=== PATIENT | male | born 1960 | race Asian ===

== ENCOUNTER 2017-02-10 10:45 | Inpatient (IN) | payer BC ==
[~2017-02-10] VITALS: Ht 170.2 cm; Wt 55.1 kg
[2017-02-10] MEDS ORDERED: PROTONIX40 MG PO (11:18)
[2017-02-10] MEDS ORDERED: CIPRO500 MG PO (11:19)
[2017-02-10] MEDS ORDERED: BENTYL10 MG PO (11:19)
[2017-02-10] MEDS ORDERED: MINTOX PLUS1 CTB PO (11:20)
[2017-02-10] MEDS ORDERED: PEPCID40 MG PO (11:20)
[2017-02-10 11:36] LABS: CALCIUM 8.5 mg/dL (8.5-10.1); CARBON DIOXIDE 29.6 mmol/L (21-32); CHLORIDE SERUM 102 mmol/L (98-107); CREATININE SERUM 0.9 mg/dL (0.7-1.3); GFR1 > 60 mL/min; GLUCOSE SERUM 116 mg/dL (74-106); POTASSIUM SERUM 3.4 mmol/L (3.5-5.1); SODIUM SERUM 136 mmol/L (136-145)
[2017-02-10 11:40] LABS: ALBUMIN 3.8 g/dL (3.4-5.0); ALKALINE PHOSPHATASE 65 U/L (46-116); ALT/SGPT 22 U/L (16-63); AMYLASE 35 U/L (25-115); AST/SGOT 14 U/L (15-37); LIPASE 127 IU/L (73-393); TOTAL PROTEIN, SERUM 6.8 g/dL (6.4-8.2)
[2017-02-10 11:47] LABS: BASOPHIL % 0.4 % (0-2); PLATELET COUNT 238 x10^3mcL (130-400); RED CELL DISTRIBUTION WIDTH 12.2 % (11.5-14.5)
[2017-02-10 12:12] LABS: microscopic required? NO
[2017-02-10 12:20] LABS: urine erythrocyte NEGATIVE (NEGATIVE)
[2017-02-10 15:49] VITALS: BP 115/70
[2017-02-10 16:04] LABS: AMPHETAMINE QUAL UR NONE DETECTED (NEG <=1000)
[2017-02-10 16:21] LABS: CHOLESTEROL/HDL RATIO 3.9; MAGNESIUM 2.2 mg/dL (1.8-2.4); PHOSPHOROUS 3.7 mg/dL (2.5-4.9)
[2017-02-10 16:27] LABS: FREE T4 1.36 ng/dL (0.76-1.46); T4(THYROXINE) 11.1 ug/dL (4.7-13.3)
[2017-02-10 16:29] LABS: T3 TOTAL 0.98 ng/mL
[2017-02-10 21:34] VITALS: BP 98/62
[2017-02-11 06:26] LABS: BASOPHIL % 0.4 % (0-2); PLATELET COUNT 218 x10^3mcL (130-400); RED CELL DISTRIBUTION WIDTH 12.1 % (11.5-14.5)
[2017-02-11 06:35] VITALS: BP 108/62
[2017-02-11 06:41] LABS: CALCIUM 7.9 mg/dL (8.5-10.1); CARBON DIOXIDE 26.7 mmol/L (21-32); CHLORIDE SERUM 105 mmol/L (98-107); CREATININE SERUM 0.8 mg/dL (0.7-1.3); GFR1 > 60 mL/min; GLUCOSE SERUM 88 mg/dL (74-106); LACTIC DEHYDROGENASE (LDH) 124 U/L (100-190); POTASSIUM SERUM 3.5 mmol/L (3.5-5.1); SODIUM SERUM 140 mmol/L (136-145)
[2017-02-11 08:00] VITALS: BP 112/68
[2017-02-11 12:30] VITALS: BP 105/70
[2017-02-11 13:29] VITALS: BP 101/69
[2017-02-11 17:00] VITALS: BP 112/76
[2017-02-11 21:20] VITALS: BP 103/60
[2017-02-12 06:26] VITALS: BP 101/56
[2017-02-12 07:25] LABS: CARBON DIOXIDE 23.5 mmol/L (21-32); CHLORIDE SERUM 103 mmol/L (98-107); CREATININE SERUM 0.8 mg/dL (0.7-1.3); GFR1 > 60 mL/min; GLUCOSE SERUM 73 mg/dL (74-106); MAGNESIUM 1.9 mg/dL (1.8-2.4); PHOSPHOROUS 3.8 mg/dL (2.5-4.9); POTASSIUM SERUM 3.6 mmol/L (3.5-5.1); SODIUM SERUM 138 mmol/L (136-145)
[2017-02-12 07:33] LABS: BASOPHIL % 0.5 % (0-2); PLATELET COUNT 205 x10^3mcL (130-400); RED CELL DISTRIBUTION WIDTH 12.3 % (11.5-14.5)
[2017-02-12 10:36] VITALS: BP 95/58
[2017-02-12 14:35] VITALS: BP 105/68
[2017-02-12 18:09] VITALS: BP 107/62
[2017-02-12 20:46] VITALS: BP 149/94
[2017-02-12 20:47] VITALS: BP 95/55
[2017-02-13 05:11] VITALS: BP 112/71
[2017-02-13 06:17] LABS: BASOPHIL % 0.2 % (0-2); PLATELET COUNT 195 x10^3mcL (130-400); RED CELL DISTRIBUTION WIDTH 12.2 % (11.5-14.5)
[2017-02-13 06:19] LABS: CALCIUM 7.7 mg/dL (8.5-10.1); CARBON DIOXIDE 26.6 mmol/L (21-32); CHLORIDE SERUM 105 mmol/L (98-107); CREATININE SERUM 0.7 mg/dL (0.7-1.3); GFR1 > 60 mL/min; GLUCOSE SERUM 85 mg/dL (74-106); POTASSIUM SERUM 3.2 mmol/L (3.5-5.1); SODIUM SERUM 139 mmol/L (136-145)
[2017-02-13 10:04] VITALS: BP 101/61
[2017-02-13 12:51] LABS: IRON 50 ug/dL (65-170); TOTAL IRON BINDING CAPACITY 157 ug/dL (250-450)
[2017-02-13 13:25] LABS: RED BLOOD CELLS 3.81 M/mm3 (4.52-5.90)
[2017-02-13 14:40] VITALS: BP 108/72
[2017-02-13 17:51] VITALS: BP 117/77
[2017-02-13 20:51] VITALS: BP 114/82
[2017-02-14 05:20] VITALS: BP 109/66
[2017-02-14 06:36] LABS: BASOPHIL % 0.4 % (0-2); PLATELET COUNT 229 x10^3mcL (130-400); RED CELL DISTRIBUTION WIDTH 12.5 % (11.5-14.5)
[2017-02-14 06:57] LABS: CALCIUM 8.4 mg/dL (8.5-10.1); CARBON DIOXIDE 28.6 mmol/L (21-32); CHLORIDE SERUM 105 mmol/L (98-107); CREATININE SERUM 0.7 mg/dL (0.7-1.3); GFR1 > 60 mL/min; GLUCOSE SERUM 104 mg/dL (74-106); PHOSPHOROUS 2.9 mg/dL (2.5-4.9); POTASSIUM SERUM 3.6 mmol/L (3.5-5.1); SODIUM SERUM 140 mmol/L (136-145)
[2017-02-14 11:30] VITALS: BP 110/81
[2017-02-14] MEDS ORDERED: BIA500 PO (12:23)
[2017-02-14] MEDS ORDERED: AMO500 PO (12:24)
[2017-02-14] MEDS ORDERED: LAC PO (12:25)
[2017-02-14 13:34] VITALS: BP 112/78
[2017-02-14 13:36] VITALS: BP 112/78
== END 2017-02-14 15:15 | disposition home or self-care (01) | DRG 392 ==
LOC: ED 10:45 → DU 14:48
PROVIDERS: Emergency Medicine; Internal Medicine Gastroenterology; ADMIT Family Medicine
PROC: 0DB68ZX Excision of Stomach, Via Natural or Artificial Opening Endoscopic, Diagnostic (ICD-10-PCS; principal; 2017-02-11 11:00)
PROC: 0DJD8ZZ Inspection of Lower Intestinal Tract, Via Natural or Artificial Opening Endoscopic (ICD-10-PCS; 2017-02-14)
DX: K31.89 Other diseases of stomach and duodenum (principal); Z68.1 Body mass index [BMI] 19.9 or less, adult; K21.9 Gastro-esophageal reflux disease without esophagitis; M51.36 Other intervertebral disc degeneration, lumbar region; E87.6 Hypokalemia; E78.5 Hyperlipidemia, unspecified; D64.9 Anemia, unspecified; E86.0 Dehydration; E83.51 Hypocalcemia
CPT/HCPCS: 43220; 43235; 45378; 74181; 83880; 84439; 94150; C1769; J1200; J1610; J1885; J2250; J2270; J2310; J3010; J3480; J3490; J7030; J8597; Q0162; Q9967

== ENCOUNTER 2017-03-17 13:16 | Emergency (ER) | payer BC ==
[~2017-03-17] VITALS: Ht 170.2 cm; Wt 44.9 kg
[~2017-03-17 13:16] MED LIST: AMO500 PO; BENTYL10 MG PO; BIA500 PO; CIPRO500 MG PO; LAC PO; MINTOX PLUS1 CTB PO; PEPCID40 MG PO; PROTONIX40 MG PO
[2017-03-17 13:33] VITALS: BP 146/80
[2017-03-17 15:10] LABS: microscopic required? NO
[2017-03-17 15:12] LABS: BASOPHIL % 0.3 % (0-2); PLATELET COUNT 293 x10^3mcL (130-400); RED CELL DISTRIBUTION WIDTH 12.7 % (11.5-14.5)
[2017-03-17 15:16] LABS: urine erythrocyte NEGATIVE (NEGATIVE)
[2017-03-17 15:21] LABS: ALKALINE PHOSPHATASE 47 U/L (46-116); ALT/SGPT 31 U/L (16-63); AMYLASE 29 U/L (25-115); AST/SGOT 16 U/L (15-37); BILIRUBIN TOTAL 0.7 mg/dL (0.20-1.00); CALCIUM 7.9 mg/dL (8.5-10.1); CARBON DIOXIDE 34.3 mmol/L (21-32); CHLORIDE SERUM 97 mmol/L (98-107); CREATININE SERUM 0.7 mg/dL (0.7-1.3); GFR1 > 60 mL/min; GLUCOSE SERUM 95 mg/dL (74-106); LIPASE 132 IU/L (73-393); SODIUM SERUM 138 mmol/L (136-145)
[2017-03-17 15:30] LABS: TOTAL PROTEIN, SERUM 5.7 g/dL (6.4-8.2)
[2017-03-17 15:32] LABS: POTASSIUM SERUM 2.8 mmol/L (3.5-5.1)
[2017-03-20 07:10] LABS: RAPID PLASMA REAGIN Non Reactive (Non Reactive)
== END 2017-03-17 18:10 | disposition home or self-care (01) ==
LOC: ED 13:16
PROVIDERS: Emergency Medicine
DX: N45.1 Epididymitis (principal); E87.6 Hypokalemia; E46 Unspecified protein-calorie malnutrition; D64.9 Anemia, unspecified; F17.210 Nicotine dependence, cigarettes, uncomplicated; Z90.49 Acquired absence of other specified parts of digestive tract
CPT/HCPCS: 87491; 87591; J0696; J1885; J3480; J7030; J7040; Q0092

== ENCOUNTER 2017-04-20 13:11 | Inpatient (IN) | payer MEDICAID ==
[~2017-04-20] VITALS: Ht 170.2 cm; Wt 46.0 kg
[2017-04-20 14:23] LABS: BASOPHIL % 0.4 % (0-2); RED CELL DISTRIBUTION WIDTH 12.9 % (11.5-14.5)
[2017-04-20 14:24] LABS: PLATELET COUNT 455 x10^3mcL (130-400)
[2017-04-20 14:47] LABS: ALBUMIN 3.6 g/dL (3.4-5.0); ALKALINE PHOSPHATASE 87 U/L (46-116); ALT/SGPT 53 U/L (16-63); AMYLASE 36 U/L (25-115); AST/SGOT 35 U/L (15-37); BILIRUBIN TOTAL 1.1 mg/dL (0.20-1.00); CALCIUM 9.2 mg/dL (8.5-10.1); CREATININE SERUM 0.8 mg/dL (0.7-1.3); GFR1 > 60 mL/min; GLUCOSE SERUM 113 mg/dL (74-106); LIPASE 132 IU/L (73-393); TOTAL PROTEIN, SERUM 7.2 g/dL (6.4-8.2)
[2017-04-20 14:58] LABS: CHLORIDE SERUM 71 mmol/L (98-107); SODIUM SERUM 125 mmol/L (136-145)
[2017-04-20 15:19] LABS: CHOLESTEROL 291 mg/dL (<200); HDL CHOLESTEROL 63 mg/dL (40-60)
[2017-04-20 15:20] LABS: CARBON DIOXIDE > 45.0 mmol/L (21-32)
[2017-04-20 15:21] LABS: POTASSIUM SERUM 1.7 mmol/L (3.5-5.1)
[2017-04-20] MEDS ORDERED: MORPHINE SULFAT30 M6 PO (16:16)
[2017-04-20] MEDS ORDERED: OXYCODONE HYDROC5 M2 (16:16)
[2017-04-20 17:35] VITALS: BP 94/60
[2017-04-20 17:43] VITALS: BP 94/60
[2017-04-20 18:03] LABS: T3 TOTAL 0.58 ng/mL
[2017-04-20 18:08] LABS: MAGNESIUM 2.8 mg/dL (1.8-2.4); PHOSPHOROUS 4.5 mg/dL (2.5-4.9)
[2017-04-20 18:15] LABS: CHOLESTEROL/HDL RATIO 4.7
[2017-04-20 18:18] LABS: FREE T4 1.76 ng/dL (0.76-1.46)
[2017-04-20 18:24] LABS: FREE THYROXINE INDEX 4.8 ug/dL (1.4-4.5); T4(THYROXINE) 13.4 ug/dL (4.7-13.3)
[2017-04-20 21:18] VITALS: BP 96/58
[2017-04-21] VITALS (8 sets, daily range): BP systolic 86–104; BP diastolic 54–73
[2017-04-21 00:43] LABS: CHLORIDE SERUM 86 mmol/L (98-107); CREATININE SERUM 0.6 mg/dL (0.7-1.3); GFR1 > 60 mL/min; GLUCOSE SERUM 97 mg/dL (74-106); SODIUM SERUM 134 mmol/L (136-145)
[2017-04-21 00:46] LABS: CARBON DIOXIDE 43.9 mmol/L (21-32); POTASSIUM SERUM 2.1 mmol/L (3.5-5.1)
[2017-04-21 04:55] LABS: UA SPECIFIC GRAVITY 1.015 (1.005-1.035); microscopic required? YES; urine erythrocyte NEGATIVE (NEGATIVE)
[2017-04-21 05:07] LABS: AMPHETAMINE QUAL UR NONE DETECTED (NEG <=1000)
[2017-04-21 07:43] LABS: BASOPHIL % 0.4 % (0-2); PLATELET COUNT 362 x10^3mcL (130-400); RED CELL DISTRIBUTION WIDTH 13.2 % (11.5-14.5)
[2017-04-21 08:17] LABS: CALCIUM 7.7 mg/dL (8.5-10.1); CARBON DIOXIDE 39.4 mmol/L (21-32); CHLORIDE SERUM 88 mmol/L (98-107); CREATININE SERUM 0.6 mg/dL (0.7-1.3); GFR1 > 60 mL/min; GLUCOSE SERUM 93 mg/dL (74-106); MAGNESIUM 2.5 mg/dL (1.8-2.4); PHOSPHOROUS 2.8 mg/dL (2.5-4.9); SODIUM SERUM 136 mmol/L (136-145)
[2017-04-21 08:30] LABS: POTASSIUM SERUM 2.2 mmol/L (3.5-5.1)
[2017-04-21 19:18] LABS: CALCIUM 8.3 mg/dL (8.5-10.1); CHLORIDE SERUM 88 mmol/L (98-107); CREATININE SERUM 0.6 mg/dL (0.7-1.3); GFR1 > 60 mL/min; GLUCOSE SERUM 94 mg/dL (74-106); SODIUM SERUM 137 mmol/L (136-145)
[2017-04-21 19:41] LABS: CARBON DIOXIDE 41.4 mmol/L (21-32); POTASSIUM SERUM 2.4 mmol/L (3.5-5.1)
[2017-04-22 06:07] VITALS: BP 101/65
[2017-04-22 07:09] LABS: CALCIUM 8.9 mg/dL (8.5-10.1); CHLORIDE SERUM 88 mmol/L (98-107); CREATININE SERUM 0.5 mg/dL (0.7-1.3); GFR1 > 60 mL/min; GLUCOSE SERUM 108 mg/dL (74-106); MAGNESIUM 2.5 mg/dL (1.8-2.4); PHOSPHOROUS 3.3 mg/dL (2.5-4.9); SODIUM SERUM 137 mmol/L (136-145)
[2017-04-22 07:11] LABS: POTASSIUM SERUM 2.3 mmol/L (3.5-5.1)
[2017-04-22 07:12] LABS: CARBON DIOXIDE 43.9 mmol/L (21-32)
[2017-04-22 07:17] LABS: BASOPHIL % 1.1 % (0-2); PLATELET COUNT 390 x10^3mcL (130-400)
[2017-04-22 09:19] VITALS: BP 99/64
[2017-04-22 17:29] VITALS: BP 89/61
[2017-04-22 19:17] LABS: CALCIUM 8.8 mg/dL (8.5-10.1); CHLORIDE SERUM 91 mmol/L (98-107); CREATININE SERUM 0.5 mg/dL (0.7-1.3); GFR1 > 60 mL/min; GLUCOSE SERUM 122 mg/dL (74-106); SODIUM SERUM 136 mmol/L (136-145)
[2017-04-22 19:20] LABS: CARBON DIOXIDE 42.9 mmol/L (21-32); POTASSIUM SERUM 2.5 mmol/L (3.5-5.1)
[2017-04-22 21:10] VITALS: BP 100/67
[2017-04-23 06:27] VITALS: BP 109/67
[2017-04-23 07:36] LABS: CALCIUM 9.3 mg/dL (8.5-10.1); CHLORIDE SERUM 90 mmol/L (98-107); CREATININE SERUM 0.6 mg/dL (0.7-1.3); GFR1 > 60 mL/min; GLUCOSE SERUM 163 mg/dL (74-106); MAGNESIUM 2.4 mg/dL (1.8-2.4); PHOSPHOROUS 4.2 mg/dL (2.5-4.9); SODIUM SERUM 139 mmol/L (136-145)
[2017-04-23 07:41] LABS: RED CELL DISTRIBUTION WIDTH 12.5 % (11.5-14.5)
[2017-04-23 07:44] LABS: PLATELET COUNT 415 x10^3mcL (130-400)
[2017-04-23 08:08] LABS: CARBON DIOXIDE 43.9 mmol/L (21-32); POTASSIUM SERUM 2.5 mmol/L (3.5-5.1)
[2017-04-23 10:23] VITALS: BP 123/86
[2017-04-23 14:47] VITALS: BP 107/75
[2017-04-23 18:12] VITALS: BP 101/68
[2017-04-23 21:20] VITALS: BP 97/72
[2017-04-24 05:39] VITALS: BP 90/65
[2017-04-24 06:13] LABS: BASOPHIL % 0.5 % (0-2); PLATELET COUNT 375 x10^3mcL (130-400); RED CELL DISTRIBUTION WIDTH 13.2 % (11.5-14.5)
[2017-04-24 06:36] LABS: CALCIUM 9.2 mg/dL (8.5-10.1); CHLORIDE SERUM 90 mmol/L (98-107); CREATININE SERUM 0.5 mg/dL (0.7-1.3); GFR1 > 60 mL/min; GLUCOSE SERUM 138 mg/dL (74-106); MAGNESIUM 2.3 mg/dL (1.8-2.4); PHOSPHOROUS 3.8 mg/dL (2.5-4.9); SODIUM SERUM 141 mmol/L (136-145)
[2017-04-24 07:09] LABS: CARBON DIOXIDE 44.3 mmol/L (21-32); POTASSIUM SERUM 2.1 mmol/L (3.5-5.1)
[2017-04-24 10:14] VITALS: BP 94/59
[2017-04-24 14:29] VITALS: BP 101/73
[2017-04-24 15:51] LABS: CALCIUM 9.3 mg/dL (8.5-10.1); CHLORIDE SERUM 89 mmol/L (98-107); CREATININE SERUM 0.6 mg/dL (0.7-1.3); GFR1 > 60 mL/min; GLUCOSE SERUM 160 mg/dL (74-106); SODIUM SERUM 139 mmol/L (136-145)
[2017-04-24 15:57] LABS: POTASSIUM SERUM 2.4 mmol/L (3.5-5.1)
[2017-04-24 15:58] LABS: CARBON DIOXIDE 42.8 mmol/L (21-32)
[2017-04-24 17:55] VITALS: BP 100/71
[2017-04-24 20:59] VITALS: BP 104/75
[2017-04-25 05:48] VITALS: BP 97/63
[2017-04-25 06:57] LABS: BASOPHIL % 0.6 % (0-2); PLATELET COUNT 327 x10^3mcL (130-400); RED CELL DISTRIBUTION WIDTH 13.7 % (11.5-14.5)
[2017-04-25 07:07] LABS: CALCIUM 8.6 mg/dL (8.5-10.1); CHLORIDE SERUM 88 mmol/L (98-107); CREATININE SERUM 0.6 mg/dL (0.7-1.3); GFR1 > 60 mL/min; GLUCOSE SERUM 138 mg/dL (74-106); MAGNESIUM 2.2 mg/dL (1.8-2.4); PHOSPHOROUS 4.7 mg/dL (2.5-4.9); SODIUM SERUM 136 mmol/L (136-145)
[2017-04-25 07:15] LABS: CARBON DIOXIDE 42.5 mmol/L (21-32)
[2017-04-25 07:17] LABS: POTASSIUM SERUM 2.6 mmol/L (3.5-5.1)
[2017-04-25 09:39] VITALS: BP 94/71
[2017-04-25 13:25] VITALS: BP 95/69
[2017-04-25 17:25] VITALS: BP 103/77
[2017-04-25 19:45] VITALS: BP 96/72
[2017-04-26 05:31] VITALS: BP 94/65
[2017-04-26 07:27] LABS: CHLORIDE SERUM 86 mmol/L (98-107); CREATININE SERUM 0.6 mg/dL (0.7-1.3); GFR1 > 60 mL/min; GLUCOSE SERUM 143 mg/dL (74-106); MAGNESIUM 2.2 mg/dL (1.8-2.4); PHOSPHOROUS 4.8 mg/dL (2.5-4.9); SODIUM SERUM 134 mmol/L (136-145)
[2017-04-26 07:38] LABS: BASOPHIL % 0.5 % (0-2); PLATELET COUNT 299 x10^3mcL (130-400); RED CELL DISTRIBUTION WIDTH 13.2 % (11.5-14.5)
[2017-04-26 07:50] LABS: CARBON DIOXIDE 42.4 mmol/L (21-32); POTASSIUM SERUM 2.4 mmol/L (3.5-5.1)
[2017-04-26 09:57] VITALS: BP 98/76
[2017-04-26 13:52] VITALS: BP 91/66
[2017-04-26 16:39] VITALS: BP 92/70
[2017-04-26 21:49] VITALS: BP 94/69
[2017-04-27 06:12] VITALS: BP 103/73
[2017-04-27 07:50] LABS: CALCIUM 8.7 mg/dL (8.5-10.1); CARBON DIOXIDE 39.6 mmol/L (21-32); CHLORIDE SERUM 84 mmol/L (98-107); CREATININE SERUM 0.7 mg/dL (0.7-1.3); GFR1 > 60 mL/min; MAGNESIUM 2.4 mg/dL (1.8-2.4); PHOSPHOROUS 5.4 mg/dL (2.5-4.9); POTASSIUM SERUM 4.1 mmol/L (3.5-5.1); SODIUM SERUM 129 mmol/L (136-145)
[2017-04-27 07:57] LABS: GLUCOSE SERUM 559 mg/dL (74-106)
[2017-04-27 08:08] LABS: BASOPHIL % 0.3 % (0-2); PLATELET COUNT 253 x10^3mcL (130-400); RED CELL DISTRIBUTION WIDTH 13.3 % (11.5-14.5)
[2017-04-27 10:18] VITALS: BP 90/62
[2017-04-27] MEDS ORDERED: COLACE100 MG PO (13:02)
[2017-04-27] MEDS ORDERED: MIRUD PO (13:07)
[2017-04-27 13:11] VITALS: BP 90/62
== END 2017-04-27 14:30 | disposition short-term general hospital (02) | DRG 422 ==
LOC: ED 13:11 → DU 16:07
PROVIDERS: Emergency Medicine; Family Medicine; Student in an Organized Health Care Education/Training Program
DX: E86.0 Dehydration (principal); N17.0 Acute kidney failure with tubular necrosis; R64 Cachexia; C25.2 Malignant neoplasm of tail of pancreas; E43 Unspecified severe protein-calorie malnutrition; C79.89 Secondary malignant neoplasm of other specified sites; D64.9 Anemia, unspecified; R11.2 Nausea with vomiting, unspecified; T45.1X5A Adverse effect of antineoplastic and immunosuppressive drugs, initial encounter; E87.1 Hypo-osmolality and hyponatremia; E87.6 Hypokalemia; E83.41 Hypermagnesemia; E78.5 Hyperlipidemia, unspecified; Z68.1 Body mass index [BMI] 19.9 or less, adult; Y92.009 Unspecified place in unspecified non-institutional (private) residence as the place of occurrence of the external cause; Z87.891 Personal history of nicotine dependence
CPT/HCPCS: 82962; 83880; 84439; 97110-GP; 97116-GP; 97530-GP; G0480; J1644; J2270; J2405; J2550; J2765; J3480; J7030; J7131; Q0092